=== PATIENT | male | born 1985 | race Two or more races ===

== ENCOUNTER 2016-07-25 23:25 | Emergency (ER) | payer BC ==
[2016-07-25] MEDS ORDERED: FAMOTIDINE INJ/PF 20 MG/2 ML SDV IV ONE (23:53)
[2016-07-25] MEDS ORDERED: DIPHENHYDRAMINE HCL 50 MG/ML VIAL IV ONE (23:53)
[2016-07-25] MEDS ORDERED: EPINEPHRINE INJ/PF 1 MG/1 ML AMPULE IM ONE (23:53)
[2016-07-25] MEDS ORDERED: METHYLPREDNISOLONE INJ 125 MG/2 ML SDV IV ONE (23:53)
[2016-07-25] MEDS ORDERED: RACEPINEPHRINE HCL 2.25% NEB 0.5 ML AMPUL NEB ONE (23:54)
[2016-07-25] MEDS ORDERED: EPINEPHRINE INJ/PF 1 MG/1 ML AMPULE ONE (23:56)
--- NOTE | 2016-07-25 23:57 | ER Document Report ---
ED General - General Chief Complaint: Allergic Reaction Stated Complaint: THROAT SWELLING Time Seen by Provider: 07/25/16 23:49 Notes: Patient is a 30-year-old male who presents with complaint of allergic reaction. Patient says it started about 20 minutes after he ate some food and had some sneezing and she is on it. He says in the past whenever he is eating dairy products he has noticeable to scratching or itching in his throat but says it is never that severe. He said this time after he ate a cheese his throat started to feel scratchy and then it continued to progress and now he has difficulty breathing and swallowing. He said he took a liquid allergy medicine. He is unsure what it was. He denies any rashes. He read all treatment at home if he does have history of asthma. Said this did not help. He has no other complaints at this time. TRAVEL OUTSIDE OF THE [place] IN LAST 30 DAYS: No - Related Data Allergies/Adverse Reactions: Penicillins Allergy (Verified 05/29/15 16:57) Past Medical History - Social History Smoking Status: Unknown if Ever Smoked Frequency of alcohol use: None Drug Abuse: None Family History: Reviewed & Not Pertinent Pulmonary Medical History: Reports: Hx Asthma Renal/ Medical History: Reports: Hx Kidney Stones. Denies: Hx Peritoneal Dialysis Psychiatric Medical History: Reports: Hx Bipolar Disorder, Hx Depression Past Surgical History: Reports: Hx Kidney (Renal Surgery) - x3, Hx Orthopedic Surgery - left knee meniscus, Hx Tonsillectomy - adenoids also removed - Immunizations Hx Diphtheria, Pertussis, Tetanus Vaccination: Yes Review of Systems - Review of Systems Notes: My Normal Review Basic REVIEW OF SYSTEMS: CONSTITUTIONAL : Denies fever, chills, or sweats. Denies recent illness. EENT: Sensation of swelling in throat. CARDIOVASCULAR: Denies chest pain. RESPIRATORY: Denies cough, cold, or chest congestion. some shortness of breath GASTROINTESTINAL: Denies abdominal pain. Denies nausea, vomiting, or diarrhea. Denies constipation. Last BM: SKIN: Denies rash or skin lesions. NEUROLOGICAL: Denies altered mental status or loss of consciousness. Denies headache. Denies weakness or paralysis or loss of use of either side. Denies problems with gait or speech. Denies sensory or motor loss. ALL OTHER SYSTEMS REVIEWED AND NEGATIVE. Physical Exam - Vital signs Vitals: Temp Pulse Resp BP Pulse Ox 97.8 F 101 H 19 163/97 H 98 07/25/16 23:29 07/25/16 23:29 07/25/16 23:29 07/25/16 23:29 07/25/16 23:29 - Notes Notes: General Appearance: Well nourished, alert, cooperative, no acute distress, no obvious discomfort. No stridor. Mild hoarseness of voice. Vitals: reviewed, See vital signs table. Head: no swelling or tenderness to the head Eyes: PERRL, EOMI, Conjuctiva clear Mouth: No decreasd moisture. No glossal or pharyngeal swelling on visual exam. Throat: No tonsillar inflammation, No airway obstruction, No lymphadenopathy Neck: Supple, no neck tenderness Lungs: No wheezing, No rales, No rhonci, No accessory muscle use, good air exchange bilaterally. Heart: Normal rate, Regular rythm, No murmur, no rub Extremities: strength 5/5 in all extremities, good pulses in all extremities, no swelling or tenderness in the extremities, no edema. Skin: warm, dry, appropriate color, no rash Neuro: speech clear, oriented x 3, normal affect, responds appropriately to questions. Course - Re-evaluation Re-evalutation: 07/26/16 01:10 Feeling improved. We will continue to closely monitor the patient. He has no pharyngeal or glossal swelling. The hoarseness of his voice has improved. - Vital Signs Vital signs: Temp Pulse Resp BP Pulse Ox 97.8 F 101 H 16 129/81 H 96 07/25/16 23:29 07/25/16 23:29 07/26/16 04:01 07/26/16 04:01 07/26/16 04:01 - Transfer of Care Notes: 07/26/16 04:10 Has not been watched for 4 hours. His symptoms have remained resolved. He has not required any repeat epinephrine. He is encouraged to stay away from cheese. He is encouraged to return to ER if has difficulty breathing, difficulty swallowing, or throat swelling. He will be discharged home with tapering steroids as well as adrenal KwikPen. Patient agrees with plan will be discharged home. Dictation of this chart was performed using voice recognition software; therefore, there may be some unintended grammatical errors. Discharge - Discharge Clinical Impression: Allergic reaction Qualifiers: Encounter type: initial encounter Qualified Code(s): T78.40XA - Allergy, unspecified, initial encounter Condition: Good Disposition: HOME, SELF-CARE Additional Instructions: Please take benadryl for itching. Please use the Adrenaclick pen and return to the ER immediately if you develop any throat tightness, difficulty breathing, or difficulty swallowing. Please stop eating cheese or any dairy related products. Prescriptions: Epinephrine [Adrenaclick] 0.3 mg IM ONCE PRN #1 kit PRN Reason: severe allergic reaction Prednisone 10 mg PO ASDIR #42 tablet
[2016-07-26 04:42] VITALS: BP 125/71
== END 2016-07-26 04:17 | disposition home or self-care (01) ==
LOC: ER 23:25
DX: T78.40XA Allergy, unspecified, initial encounter (principal); R06.00 Dyspnea, unspecified; R13.10 Dysphagia, unspecified; R49.0 Dysphonia; R09.89 Other specified symptoms and signs involving the circulatory and respiratory systems; X58.XXXA Exposure to other specified factors, initial encounter; J45.909 Unspecified asthma, uncomplicated
CPT/HCPCS: 94640; 99281; 96372; 96374; 96375; J1200; J0171; J2930; S0028; J3490

== ENCOUNTER 2017-01-04 13:08 | Emergency (ER) | payer BC ==
[2017-01-04] MEDS ORDERED: METHYLPREDNISOLONE INJ 125 MG/2 ML SDV IV ONE (13:31)
[2017-01-04] MEDS ORDERED: ALBUTEROL SULFATE 0.083% NEB 2.5 MG/3 ML AMPUL NEB ONE ×2 (13:31→16:18)
--- NOTE | 2017-01-04 13:33 | ER Document Report ---
ED Medical Screen (RME) - General Chief Complaint: Cough Stated Complaint: COUGH,CONGESTION,SHORTNESS OF BREATH Time Seen by Provider: 01/04/17 13:31 Notes: Patient has a history of asthma. He states he has been using his inhalers at home with no relief. He states he does not currently have any steroids. He states in the last hour he started to have sweating with chest pressure and increasing shortness of breath. TRAVEL OUTSIDE OF THE [place] IN LAST 30 DAYS: No - Related Data Allergies/Adverse Reactions: Penicillins Allergy (Verified 01/04/17 13:14) Past Medical History Pulmonary Medical History: Reports: Hx Asthma Renal/ Medical History: Reports: Hx Kidney Stones. Denies: Hx Peritoneal Dialysis Psychiatric Medical History: Reports: Hx Bipolar Disorder, Hx Depression Past Surgical History: Reports: Hx Kidney (Renal Surgery) - x3, Hx Orthopedic Surgery - left knee meniscus, Hx Tonsillectomy - adenoids also removed - Immunizations Hx Diphtheria, Pertussis, Tetanus Vaccination: Yes Physical Exam - Vital signs Vitals: Temp Pulse Resp BP Pulse Ox 98.9 F 105 H 24 H 146/89 H 97 01/04/17 13:12 01/04/17 13:12 01/04/17 13:12 01/04/17 13:12 01/04/17 13:12 Course - Vital Signs Vital signs: Temp Pulse Resp BP Pulse Ox 98.9 F 105 H 24 H 146/89 H 97 01/04/17 13:12 01/04/17 13:12 01/04/17 13:12 01/04/17 13:12 01/04/17 13:12
[2017-01-04] MEDS ORDERED: NORMAL SALINE 1000 ML 1,000 ML IV ONE (13:37)
--- NOTE | 2017-01-04 14:21 | RADIOLOGY REPORT (SQ) ---
EXAM DESCRIPTION: CHEST PA/LAT COMPLETED DATE/TIME: 01/04/2017 2:07 pm REASON FOR STUDY: cough/sob COMPARISON: 10/01/2012, 11/18/2014 EXAM PARAMETERS: NUMBER OF VIEWS: two views TECHNIQUE: Digital Frontal and Lateral radiographic views of the chest acquired. RADIATION DOSE: NA LIMITATIONS: none FINDINGS: LUNGS AND PLEURA: Minimal scarring or atelectasis in the right upper lobe superimposed on the anterior 3rd rib. No fluffy alveolar infiltrates worrisome for edema or pneumonia. No pleural effusion. No pneumothor ax. MEDIASTINUM AND HILAR STRUCTURES: No masses or contour abnormalities. HEART AND VASCULAR STRUCTURES: Heart normal size. No evidence for failure. BONES: No acute findings. HARDWARE: None in the chest. OTHER: No other significant finding. IMPRESSION: No acute findings TECHNICAL DOCUMENTATION: JOB ID: [id number] [employer]- All Rights Reserved
[2017-01-04 14:22] LABS: APPEARANCE,URINE CLEAR; BILIRUBIN,URINE NEGATIVE (NEGATIVE); GLUCOSE, URINE NEGATIVE (NEGATIVE); KETONES,URINE NEGATIVE (NEGATIVE); LEUKOCYTE ESTERASE,URINE NEGATIVE (NEGATIVE); NITRITE,URINE NEGATIVE (NEGATIVE); PROTEIN,URINE NEGATIVE (NEGATIVE); URINE SPECIFIC GRAVITY 1.015; UROBILINOGEN,URINE NEGATIVE mg/dL (<2.0)
[2017-01-04] MEDS ORDERED: IPRATROPIUM/ALBUTEROL 0.5-2.5 MG/3 ML AMPUL NEB ONE ×2 (14:22→14:55)
--- NOTE | 2017-01-04 14:23 | ER Document Report ---
ED Respiratory Problem <YUNG AGUILAR - Last Filed: 01/04/17 16:53> - General Mode of Arrival: Ambulatory Information source: Patient TRAVEL OUTSIDE OF THE [place] IN LAST 30 DAYS: No - HPI Patient complains to provider of: Short of breath Onset: Last week Duration: Continuous Context: Hx asthma Cough: Productive Sputum amount: Moderate Sputum color: Brown At home treatment: Bronchodilators - albuterol. denies: Inhaled steroids Associated symptoms: Other - see notes above <VON LR - Last Filed: 01/04/17 17:30> - General Chief Complaint: Cough Stated Complaint: COUGH,CONGESTION,SHORTNESS OF BREATH Time Seen by Provider: 01/04/17 13:31 Notes: 31 year old male with history of asthma presents to the ED complaining of increasing shortness of breath that started last week but was exacerbated today. Patient reports taking Albuterol at home with no relief. Patient has been on inhaled steroids in the past and states that they have helped manage his asthma, but is currently not on any. Patient additionally complains of a productive cough with brown sputum every few minutes. Patient denies fever. (VON LR) - Related Data Allergies/Adverse Reactions: Penicillins Allergy (Verified 01/04/17 13:14) Past Medical History - General Information source: Patient - Social History Smoking Status: Never Smoker Chew tobacco use (# tins/day): No Frequency of alcohol use: None Drug Abuse: None Family History: Reviewed & Not Pertinent Patient has suicidal ideation: No Patient has homicidal ideation: No Pulmonary Medical History: Reports: Hx Asthma Renal/ Medical History: Reports: Hx Kidney Stones. Denies: Hx Peritoneal Dialysis Psychiatric Medical History: Reports: Hx Bipolar Disorder, Hx Depression Past Surgical History: Reports: Hx Kidney (Renal Surgery) - x3, Hx Orthopedic Surgery - left knee meniscus, Hx Tonsillectomy - adenoids also removed - Immunizations Hx Diphtheria, Pertussis, Tetanus Vaccination: Yes <VON LR - Last Filed: 01/04/17 17:30> Review of Systems - Review of Systems Constitutional: No symptoms reported EENT: No symptoms reported Cardiovascular: No symptoms reported Respiratory: See HPI, Cough, Short of breath, Sputum - brown Gastrointestinal: No symptoms reported Genitourinary: No symptoms reported Male Genitourinary: No symptoms reported Musculoskeletal: No symptoms reported Skin: No symptoms reported Hematologic/Lymphatic: No symptoms reported Neurological/Psychological: No symptoms reported -: Yes All other systems reviewed and negative <VON LR - Last Filed: 01/04/17 17:30> Physical Exam - General General appearance: Alert In distress: None - HEENT Head: Normocephalic, Atraumatic Eyes: Normal Extraocular movements intact: Yes Pupils: PERRL Mouth/Lips: Normal Mucous membranes: Normal Pharynx: Normal - Respiratory Respiratory status: Retractions Chest status: Nontender Breath sounds: Rhonchi - diffuse inspiratory and expiratory, Wheezing - diffuse inspiratory and expiratory Chest palpation: Normal - Cardiovascular Rhythm: Regular, Tachycardia Heart sounds: Normal auscultation - Abdominal Inspection: Normal - Back Back: Normal - Extremities General upper extremity: Normal inspection, Normal ROM General lower extremity: Normal inspection, Normal ROM - Neurological Neuro grossly intact: Yes - Psychological Associated symptoms: Normal affect, Normal mood - Skin Skin Temperature: Warm Skin Moisture: Dry Skin Color: Normal <VON LR - Last Filed: 01/04/17 17:30> - Vital signs Vitals: Temp Pulse Resp BP Pulse Ox 98.9 F 105 H 24 H 146/89 H 97 01/04/17 13:12 01/04/17 13:12 01/04/17 13:12 01/04/17 13:12 01/04/17 13:12 Course - Laboratory Result Diagrams: 01/04/17 14:26 01/04/17 14:26 - Diagnostic Test Radiology reviewed: Image reviewed, Reports reviewed - Chest x-ray does not show any acute process - EKG Interpretation by Ok EKG shows normal: Sinus rhythm, Shafer, Intervals, QRS Complexes, ST-T Waves Rate: Normal - 97 Rhythm: NSR <YUNG AGUILRA - Last Filed: 01/04/17 16:53> - Laboratory Result Diagrams: 01/04/17 14:26 01/04/17 14:26 <VON LR - Last Filed: 01/04/17 17:30> - Re-evaluation Re-evalutation: 01/04/17 16:52 Lungs are clear at this time and the patient is not tachycardic. He will be given additional albuterol treatment, a full day's dose of prednisone, discharged with prescription for prednisone taper dose start tomorrow and another albuterol inhaler so he does not run out. (YUNG AGUILAR) - Vital Signs Vital signs: Temp Pulse Resp BP Pulse Ox 97.5 F 105 H 17 121/75 95 01/04/17 17:01 01/04/17 13:12 01/04/17 17:01 01/04/17 17:01 01/04/17 17:01 - Laboratory Laboratory results interpreted by me: 01/04/17 01/04/17 14:26 14:26 RBC 5.84 H MCH 26.5 L RDW 15.4 H Plt Count 145 L Monocytes % 13.1 H Eosinophils % 16.6 H Absolute Eosinophils 1.4 H Glucose 57 L Creatine Kinase 272 H Discharge <YUNG AGUILAR - Last Filed: 01/04/17 16:53> <VON LR - Last Filed: 01/04/17 17:30> - Discharge Clinical Impression: Acute exacerbation of extrinsic asthma, Viral upper respiratory tract infection with cough Additional Instructions: Upper Respiratory Illness You have a viral infection of the respiratory passages -- a "cold." This common infection causes nasal congestion, drainage, and often sore throat and cough. It is caused by a virus and is highly contagious. The disease usually lasts a week or more, though the worst symptoms are usually over in 3 or 4 days. There is no "cure" for the viral infection -- it must run its course. If there is a complication, such as bacterial infection in the nose, sinuses, middle ear, or bronchial tubes, antibiotics may be required, but antibiotics won 't affect the virus. If you smoke, you should STOP!! Drink plenty of fluids. A humidifier may help. An expectorant medication or decongestant may make you more comfortable. Use acetaminophen or ibuprofen for fever or aches. See the doctor if fever persists over two or three days, if there is any significant worsening of your symptoms, or if you simply fail to improve as expected. Bronchitis with Bronchospasm (Wheezing) You have bronchitis with bronchospasm (wheezing). Sometimes people develop wheezing with a chest cold. This occurs either because of an underlying tendency toward asthma or because the virus itself irritates the bronchial tubes. This irritation causes cough, shortness of breath, and wheezing. Emergency treatment of bronchospasm may include adrenaline shots or bronchodilator aerosol. You may feel lightheaded and have a rapid pulse for an hour or two. Rest and get plenty of fluids. At home, we'll treat you with a bronchodilator inhaler. Corticosteroids may be required for some patients. Until you recover, avoid chemical fumes, dusts, pollens, and exercising in very cold or dry air. If you smoke, stop now! Most cases of bronchitis get better without antibiotics. We prescribe antibiotics when we believe bacteria are damaging your airways, or if there's high risk the bronchitis will worsen into pneumonia. Increase your fluid intake. A cool mist humidifier may make your lungs more comfortable. An expectorant (cough medicine that loosens phlegm) can help. Repeated episodes of bronchitis and bronchospasm may result in lung damage -- for example, chronic bronchitis, recurrent pneumonias, or emphysema. If you develop a fever, increased wheezing, chest pain, or severe shortness of breath, you should contact the doctor immediately. //////////////////////////////////////////////////////////////////////////////// ////////////////////////////////////////////////////////// Start the prednisone as prescribed tomorrow. Drink plenty of fluids. Plenty of rest. Use your albuterol inhaler every 2-4 hours for wheezing as needed. Try Robitussin-DM for cough control. Follow-up with your primary care this week for recheck if not improving. Ask your doctor about a long acting bronchodilator and steroid inhaler such as Advair to manage her asthma symptoms. RETURN TO THE EMERGENCY ROOM IF ANY NEW OR WORSENING SYMPTOMS. Prescriptions: Albuterol Sulfate [Proair HFA] 1 - 2 puff IH Q4 PRN #1 inhaler PRN Reason: Prednisone [Deltasone 10 mg Tablet] 10 mg PO ASDIR PRN #21 tablet PRN Reason: Forms: Return to Work Scribe Attestation: 01/04/17 16:49 I personally performed the services described in the documentation, reviewed and edited the documentation which was dictated to the scribe in my presence, and it accurately records my words and actions. (YUNG AGUILAR) Scribe Documentation - Scribe Written by Scribe:: Otis Viramontes, 01/04/2017 1431 acting as scribe for :: Yuly <VON LR - Last Filed: 01/04/17 17:30>
[2017-01-04 14:47] LABS: ABSOLUTE BASOPHILS # (AUTO) 0.1 10^3/uL (0.0-0.2); ABSOLUTE EOSINOPHILS # (AUTO) 1.4 10^3/uL (0.0-0.6); ABSOLUTE LYMPHOCYTES (AUTO) 1.7 10^3/uL (0.5-4.7); ABSOLUTE MONOCYTES (AUTO) 1.1 10^3/uL (0.1-1.4); ABSOLUTE NEUT (AUTO) 4.2 10^3/uL (1.7-8.2); BASOPHILS % (AUTO) 1.4 % (0-2); EOSINOPHILS % (AUTO) 16.6 % (0-6); HEMOGLOBIN 15.5 g/dL (13.5-17.0); HGB HCT DIFFERENCE -0.5; LYMPHOCYTES % (AUTO) 19.7 % (13-45); MEAN CORPUSCULAR HEMOGLOBIN 26.5 pg (27.0-33.4); MEAN CORPUSCULAR HGB CONC 32.9 g/dL (32.0-36.0); MEAN CORPUSCULAR VOLUME 81 fl (80-97); MONOCYTES % (AUTO) 13.1 % (3-13); RED BLOOD COUNT 5.84 10^6/uL (4.35-5.55); RED CELL DISTRIBUTION WIDTH 15.4 % (11.5-14.0); SEGMENTED NEUTROPHILS % (AUTO) 49.2 % (42-78); VENOUS BLOOD BASE EXCESS -1.1 mmol/L; VENOUS BLOOD HCO3 23.3 mmol/L (20-32); VENOUS BLOOD PH 7.41 (7.30-7.42); WHITE BLOOD COUNT 8.6 10^3/uL (4.0-10.5)
[2017-01-04] MEDS ORDERED: MAGNESIUM SULFATE/D5W 1 GM/100 ML RTUPB IV ONE (14:55)
[2017-01-04 15:05] LABS: ALANINE AMINOTRANSFERASE 48 U/L (21-72); ALBUMIN 4.1 g/dL (3.5-5.0); ALKALINE PHOSPHATASE 60 U/L (38-126); ANION GAP 12 (5-19); ASPARTATE AMINO TRANSFERASE 27 U/L (17-59); BILIRUBIN,DIRECT 0.3 mg/dL (0.0-0.4); BILIRUBIN,TOTAL 1.1 mg/dL (0.2-1.3); BLOOD UREA NITROGEN 10 mg/dL (7-20); CALCIUM 9.4 mg/dL (8.4-10.2); CARBON DIOXIDE 25 mmol/L (22-30); CHLORIDE 107 mmol/L (98-107); CREATINE KINASE 272 U/L (55-170); CREATININE RESULT 1.08 mg/dL (0.52-1.25); GLUCOSE 57 mg/dL (75-110); POTASSIUM 4.7 mmol/L (3.6-5.0); SODIUM 144.2 mmol/L (137-145); TOTAL PROTEIN 6.7 g/dL (6.3-8.2)
[2017-01-04] MEDS ORDERED: PREDNISONE 20 MG TABLET PO ONE (16:20)
--- NOTE | 2017-01-04 17:11 | EKG REPORT ---
SEVERITY:- BORDERLINE ECG - SINUS RHYTHM EARLY TRANSITION : Confirmed by: Rios Pascual MD 04-Jan-2017 17:10:29
[2017-01-04 17:28] VITALS: BP 121/75
== END 2017-01-04 17:30 | disposition home or self-care (01) ==
LOC: ER 13:08
DX: J45.901 Unspecified asthma with (acute) exacerbation (principal); J06.9 Acute upper respiratory infection, unspecified; B97.89 Other viral agents as the cause of diseases classified elsewhere; R05 Cough; R06.02 Shortness of breath; Z79.899 Other long term (current) drug therapy; Z88.0 Allergy status to penicillin
CPT/HCPCS: 93005; 94640 ×2; 99284; 96361; 96375; 96365; 36415; 87040; 87070; 87086; 87205; 82550; 85025; 87077; 80053; 81001; 84484; 87186; 82803; 83605; 71020; 93010; J2930; J3475; J7512; J7030; J7620

== ENCOUNTER 2017-02-08 13:34 | Emergency (ER) | payer BC ==
[2017-02-08] MEDS ORDERED: KETOROLAC TROMETHAMINE 60 MG/2 ML SDV IM ONE (14:56)
--- NOTE | 2017-02-08 14:56 | ER Document Report ---
ED Medical Screen (RME) - General Chief Complaint: Leg Pain Stated Complaint: LEFT THIGH PAIN Time Seen by Provider: 02/08/17 14:52 Mode of Arrival: Wheelchair Information source: Patient Notes: PT REPORTS BACK AND THIGH PAIN, SENT HOME FROM WORK FROM [employer]. DENIES TRAUMA, REPORT THIGH PAIN UP TO ABOVE THE BUTTOCKS, LEFT SIDE. TOOK OTC MEDS WITHOUT RELIEF. REPORTS URINARY FREQUENCY, LBM NORMAL, YESTERDAY. REPORTS RIGHT LEG KEEPS GOING NUMB. TRAVEL OUTSIDE OF THE [place] IN LAST 30 DAYS: No - Related Data Allergies/Adverse Reactions: Penicillins Allergy (Verified 02/08/17 13:37) Past Medical History Pulmonary Medical History: Reports: Hx Asthma Renal/ Medical History: Reports: Hx Kidney Stones. Denies: Hx Peritoneal Dialysis Psychiatric Medical History: Reports: Hx Bipolar Disorder, Hx Depression Past Surgical History: Reports: Hx Kidney (Renal Surgery) - x3, Hx Orthopedic Surgery - left knee meniscus, Hx Tonsillectomy - adenoids also removed - Immunizations Hx Diphtheria, Pertussis, Tetanus Vaccination: Yes Physical Exam - Vital signs Vitals: Temp Pulse Resp BP Pulse Ox 98.0 F 105 H 18 127/78 H 98 02/08/17 13:42 02/08/17 13:42 02/08/17 13:42 02/08/17 13:42 02/08/17 13:42 Course - Vital Signs Vital signs: Temp Pulse Resp BP Pulse Ox 98.0 F 105 H 18 127/78 H 98 02/08/17 13:42 02/08/17 13:42 02/08/17 13:42 02/08/17 13:42 02/08/17 13:42
[2017-02-08 15:54] LABS: APPEARANCE,URINE CLEAR; BILIRUBIN,URINE NEGATIVE (NEGATIVE); COLOR,URINE STRAW; GLUCOSE, URINE NEGATIVE (NEGATIVE); KETONES,URINE NEGATIVE (NEGATIVE); LEUKOCYTE ESTERASE,URINE NEGATIVE (NEGATIVE); NITRITE,URINE NEGATIVE (NEGATIVE); PROTEIN,URINE NEGATIVE (NEGATIVE); URINE SPECIFIC GRAVITY 1.009; UROBILINOGEN,URINE NEGATIVE mg/dL (<2.0)
--- NOTE | 2017-02-08 15:56 | ER Document Report ---
ED General - General Chief Complaint: Leg Pain Stated Complaint: LEFT THIGH PAIN Time Seen by Provider: 02/08/17 14:52 Mode of Arrival: Wheelchair TRAVEL OUTSIDE OF THE [place] IN LAST 30 DAYS: No - HPI Notes: 31-year-old male presents today with complaints of sudden onset lower back and left lower thigh pain approximately 1 day ago. pain 7/10, throbbing and achy. Denies any numbness or tingling down bilateral lower extremities. denies issues with bowel or bladder function since onset of pain. Tried motrin for pain without full relief. Worse when bending over, better when laying down. Pain is progressive. Denies any trauma. Denies any fevers or chills. Denies any cp, sob , n/v/d, abd pain, dysuria and hematuria. Denies history of back issues - Related Data Allergies/Adverse Reactions: Penicillins Allergy (Verified 02/08/17 13:37) Home Medications: Current Home Medications Albuterol Sulfate [Albuterol Sulfate 2.5mg/3 mL] 1 vial IH Q4 PRN 02/08/17 [ History] Albuterol Sulfate [Ventolin Hfa] 1 - 2 puff IH Q4 PRN 02/08/17 [History] Past Medical History - General Information source: Patient - Social History Smoking Status: Never Smoker Chew tobacco use (# tins/day): No Frequency of alcohol use: None Drug Abuse: None Family History: Reviewed & Not Pertinent Patient has suicidal ideation: No Patient has homicidal ideation: No Pulmonary Medical History: Reports: Hx Asthma Renal/ Medical History: Reports: Hx Kidney Stones. Denies: Hx Peritoneal Dialysis Psychiatric Medical History: Reports: Hx Bipolar Disorder, Hx Depression Past Surgical History: Reports: Hx Kidney (Renal Surgery) - x3, Hx Orthopedic Surgery - left knee meniscus, Hx Tonsillectomy - adenoids also removed - Immunizations Hx Diphtheria, Pertussis, Tetanus Vaccination: Yes Review of Systems - Review of Systems Constitutional: No symptoms reported Cardiovascular: No symptoms reported Respiratory: No symptoms reported Gastrointestinal: No symptoms reported Genitourinary: No symptoms reported Male Genitourinary: No symptoms reported Musculoskeletal: See HPI -: Yes All other systems reviewed and negative Physical Exam - Vital signs Vitals: Temp Pulse Resp BP Pulse Ox 98.0 F 105 H 18 127/78 H 98 02/08/17 13:42 02/08/17 13:42 02/08/17 13:42 02/08/17 13:42 02/08/17 13:42 Interpretation: Normal, Tachycardic - pt in pain - General General appearance: Appears well In distress: None - Respiratory Respiratory status: No respiratory distress Chest status: Nontender Breath sounds: Normal - Cardiovascular Rhythm: Regular Heart sounds: Normal auscultation Murmur: Yes - Back Back: Tender Notes: EXAM: straight leg test negative. Pain with flexion and extension at 30 degrees. Normal hip rotation. DTR +2 in BLE equally. Normal motor and sensory function in BLE equally. Distal pulses + 2 BLE equally. Noted paraspinal tenderness near and L3. Noted spinal tenderness near L4. No CVA tenderness. - Extremities Hip: Normal, Nontender Thigh: Normal, Nontender Knee: Normal Calf: Normal - Neurological Neuro grossly intact: Yes Cognition: Normal Orientation: AAOx4 Knee - Reflex grade: 2 = Normal Ankle - Reflex grade: 2 = Normal - Skin Skin Temperature: Warm Skin Moisture: Dry Skin Color: Normal Skin Turgor: Elastic Course - Re-evaluation Re-evalutation: Rechecked the patient who is resting comfortably. On re-exam, patient is symptomatically improved. Discussed the results of the radiology as well as the diagnosis at great length. Discussed the need to return to the ER for any new or worsening sx. Patient understands to take the Rx as directed. All questions answered. Patient comfortable with the decision to go home. Patient does have a ride home 02/08/17 17:11 02/08/17 17:13 - Vital Signs Vital signs: Temp Pulse Resp BP Pulse Ox 98.0 F 105 H 18 127/78 H 98 02/08/17 13:42 02/08/17 13:42 02/08/17 13:42 02/08/17 13:42 02/08/17 13:42 - Diagnostic Test Radiology results interpreted by me: 02/08/17 17:14 xray lumbar spine nad per rad Discharge - Discharge Clinical Impression: LOWER BACK SPRAIN Condition: Good Disposition: HOME, SELF-CARE Instructions: Low Back Pain ([facility]) Additional Instructions: Take Flexeril as directed, do not drive, drink or operate heavy machinery while taking medications. Rice therapy. Take meloxicam as directed, do not take any NSAIDs while taking it. Back stretches. Follow-up with parking enforcement specialist and primary care doctor within 2-3 days. Work note given.D/C: advised to return to the ER if any signs or symptoms became worse. All questions and concerns answered by this provider . Patient/family states would follow plan of care and agreed to plan of care. Patient was discharged home and off unit without incident. Please excuse any errors in this document was done by dragon dictation. Prescriptions: Cyclobenzaprine HCl [Flexeril 10 mg Tablet] 10 mg PO TID #15 tablet Meloxicam 7.5 mg PO DAILY #7 tablet Forms: Return to Work Referrals: NANCY AHUMADA MD [ACTIVE STAFF] - Follow up as needed
[2017-02-08] MEDS ORDERED: MORPHINE SULFATE 10 MG/ML INJ IM ONE (16:13)
[2017-02-08] MEDS ORDERED: CYCLOBENZAPRINE HCL 10 MG TABLET PO ONE (16:13)
--- NOTE | 2017-02-08 16:44 | RADIOLOGY REPORT (SQ) ---
EXAM DESCRIPTION: L SPINE WHOLE COMPLETED DATE/TIME: 02/08/2017 4:35 pm REASON FOR STUDY: Sudden onset left lumbar pain COMPARISON: None. NUMBER OF VIEWS: Five views including obliques. TECHNIQUE: AP, lateral, oblique, and sacral radiographic images acquired of the lumbar spine. LIMITATIONS: None. FINDINGS: MINERALIZATION: Normal. SEGMENTATION: Normal. No transitional anatomy. ALIGNMENT: Normal. VERTEBRAE: Maintained height. No fracture or worrisome bone lesion. DISCS: Preserved height. No significant osteophytes or end plate irregularity. POSTERIOR ELEMENTS: Pedicles and facets are intact. No pars defect or posterior arch defects. HARDWARE: None in the spine. PARASPINAL SOFT TISSUES: Normal. PELVIS: Intact as visualized. No fractures or worrisome bone lesions. SI joints intact. OTHER: No other significant finding. IMPRESSION: NORMAL 5 VIEW LUMBAR SPINE. TECHNICAL DOCUMENTATION: JOB ID: [id number] [employer]- All Rights Reserved
[2017-02-08 17:54] VITALS: BP 118/57
[2017-02-08] MEDS ORDERED: NORMAL SALINE 1000 ML 1,000 ML IV PRN (18:20)
[2017-02-08 19:07] LABS: ABSOLUTE BASOPHILS # (AUTO) 0.1 10^3/uL (0.0-0.2); ABSOLUTE EOSINOPHILS # (AUTO) 0.3 10^3/uL (0.0-0.6); ABSOLUTE LYMPHOCYTES (AUTO) 1.6 10^3/uL (0.5-4.7); ABSOLUTE NEUT (AUTO) 9.7 10^3/uL (1.7-8.2); BASOPHILS % (AUTO) 0.5 % (0-2); EOSINOPHILS % (AUTO) 2.3 % (0-6); HEMATOCRIT 41.6 % (37.9-51.0); HEMOGLOBIN 13.2 g/dL (13.5-17.0); LYMPHOCYTES % (AUTO) 12.5 % (13-45); MEAN CORPUSCULAR HEMOGLOBIN 25.1 pg (27.0-33.4); MEAN CORPUSCULAR HGB CONC 31.8 g/dL (32.0-36.0); MEAN CORPUSCULAR VOLUME 79 fl (80-97); PLATELET COUNT 176 10^3/uL (150-450); RED BLOOD COUNT 5.28 10^6/uL (4.35-5.55); RED CELL DISTRIBUTION WIDTH 15.3 % (11.5-14.0); SEGMENTED NEUTROPHILS % (AUTO) 76.7 % (42-78); TOTAL CELLS COUNTED % (AUTO) 100 %; WHITE BLOOD COUNT 12.6 10^3/uL (4.0-10.5)
[2017-02-08 19:23] LABS: ALANINE AMINOTRANSFERASE 43 U/L (21-72); ALBUMIN 4.2 g/dL (3.5-5.0); ALKALINE PHOSPHATASE 79 U/L (38-126); ANION GAP 10 (5-19); ASPARTATE AMINO TRANSFERASE 25 U/L (17-59); BILIRUBIN,DIRECT 0.2 mg/dL (0.0-0.4); BILIRUBIN,TOTAL 1.1 mg/dL (0.2-1.3); BLOOD UREA NITROGEN 9 mg/dL (7-20); CALCIUM 9.8 mg/dL (8.4-10.2); CARBON DIOXIDE 27 mmol/L (22-30); CHLORIDE 102 mmol/L (98-107); GLUCOSE 85 mg/dL (75-110); POTASSIUM 3.9 mmol/L (3.6-5.0); SODIUM 139.4 mmol/L (137-145); TOTAL PROTEIN 6.8 g/dL (6.3-8.2)
--- NOTE | 2017-02-09 10:31 | EKG REPORT ---
SEVERITY:- ABNORMAL ECG - SINUS TACHYCARDIA INCOMPLETE RIGHT BUNDLE BRANCH BLOCK : Confirmed by: Keshia Soto 09-Feb-2017 10:29:20
== END 2017-02-08 21:25 | disposition home or self-care (01) ==
LOC: ER 13:34
DX: S33.5XXA Sprain of ligaments of lumbar spine, initial encounter (principal); M79.605 Pain in left leg; X58.XXXA Exposure to other specified factors, initial encounter; Z87.442 Personal history of urinary calculi; Z88.0 Allergy status to penicillin
CPT/HCPCS: 93005; 99284; 96372; 96360; 36415; 85025; 80053; 81001; 85379; 72110; 93010; J1885; J2270; J7030

== ENCOUNTER 2018-08-17 01:52 | Emergency (ER) | payer BC ==
[2018-08-17] MEDS ORDERED: NORMAL SALINE 1000 ML 1,000 ML IV ONE (02:22)
[2018-08-17] MEDS ORDERED: METHYLPREDNISOLONE INJ 125 MG/2 ML SDV IV ONE (02:22)
[2018-08-17] MEDS ORDERED: FAMOTIDINE INJ/PF 20 MG/2 ML SDV IV ONE ×2 (02:22→02:28)
[2018-08-17] MEDS ORDERED: EPINEPHRINE INJ/PF 1 MG/1 ML AMPULE IM ONE (02:23)
[2018-08-17] MEDS ORDERED: DIPHENHYDRAMINE HCL 50 MG/ML VIAL IV ONE (02:24)
--- NOTE | 2018-08-17 02:26 | ER Document Report ---
ED Allergic Reaction - General Chief Complaint: Allergic Reaction Stated Complaint: POSSIBLE ALLERGIC REACTION Time Seen by Provider: 08/17/18 02:13 Primary Care Provider: ESTEVAN MARRUFO MD [ACTIVE STAFF] - Follow up as needed Mode of Arrival: Ambulatory Information source: Patient TRAVEL OUTSIDE OF THE [place] IN LAST 30 DAYS: No - HPI Onset: Just prior to arrival Onset/Duration: Sudden Quality of pain: No pain Food exposure: [place] Swelling: Lip(s), Throat Trouble swallowing / speaking: Moderate Associated symptoms: None Similar symptoms previously: Yes Recently seen / treated by doctor: No - Related Data Allergies/Adverse Reactions: kiwi Allergy (Verified 08/17/18 01:58) Penicillins Allergy (Verified 02/08/17 13:37) Past Medical History - Social History Smoking Status: Never Smoker Chew tobacco use (# tins/day): No Frequency of alcohol use: None Drug Abuse: None Family History: Reviewed & Not Pertinent Patient has suicidal ideation: No Patient has homicidal ideation: No Pulmonary Medical History: Reports: Hx Asthma Renal/ Medical History: Reports: Hx Kidney Stones. Denies: Hx Peritoneal Kaylee lysis Psychiatric Medical History: Reports: Hx Bipolar Disorder, Hx Depression Past Surgical History: Reports: Hx Kidney (Renal Surgery) - x3, Hx Orthopedic Surgery - left knee meniscus, Hx Tonsillectomy - adenoids also removed - Immunizations Hx Diphtheria, Pertussis, Tetanus Vaccination: Yes Review of Systems - Review of Systems Constitutional: No symptoms reported EENT: Throat swelling, Other - Lip Sweelling Cardiovascular: No symptoms reported Respiratory: No symptoms reported Gastrointestinal: No symptoms reported Genitourinary: No symptoms reported Male Genitourinary: No symptoms reported Musculoskeletal: No symptoms reported Skin: No symptoms reported Hematologic/Lymphatic: No symptoms reported Neurological/Psychological: No symptoms reported -: Yes All other systems reviewed and negative Physical Exam - Vital signs Vitals: Temp Pulse Resp BP Pulse Ox 98.0 F 85 20 147/96 H 97 08/17/18 01:56 08/17/18 01:56 08/17/18 01:56 08/17/18 01:56 08/17/18 01:56 Interpretation: Normal - General General appearance: Appears well, Alert, Other - Obesity In distress: None - HEENT Head: Normocephalic, Atraumatic Eyes: Normal Pupils: PERRL Sinus: Normal Nasal: Normal Mouth/Lips: Other - Mild lower lip swelling Mucous membranes: Normal, Moist Pharynx: Normal Neck: Normal - Respiratory Respiratory status: No respiratory distress Chest status: Nontender Breath sounds: Normal Chest palpation: Normal - Cardiovascular Rhythm: Regular Heart sounds: Normal auscultation Murmur: No - Abdominal Inspection: Normal Distension: No distension Bowel sounds: Normal Tenderness: Nontender Organomegaly: No organomegaly - Back Back: Normal, Nontender - Extremities General upper extremity: Normal inspection, Nontender, Normal color, Normal ROM, Normal temperature General lower extremity: Normal inspection, Nontender, Normal color, Normal ROM, Normal temperature, Normal weight bearing. No: Evelia's sign - Neurological Neuro grossly intact: Yes Cognition: Normal Orientation: AAOx4 Harry Coma Scale Eye Opening: Spontaneous [place] Coma Scale Verbal: Oriented [place] Coma Scale Motor: Obeys Commands [place] Coma Scale Total: 15 Speech: Normal Motor strength normal: LUE, RUE, LLE, RLE Sensory: Normal - Psychological Associated symptoms: Normal affect, Normal mood - Skin Skin Temperature: Warm Skin Moisture: Dry Skin Color: Normal Course - Re-evaluation Re-evalutation: 08/17/18 04:27 On re-evaluation, patient said she is feeling a lot better. His difficulty swallowing has resolved. He denies any shortness of breath or chest pain. He wants to be discharged home to follow-up with his primary doctor in the morning. I advised him to come back to the emergency room or call 911 if his condition worsens. - Vital Signs Vital signs: Temp Pulse Resp BP Pulse Ox 97.9 F 85 17 130/70 H 95 08/17/18 04:51 08/17/18 01:56 08/17/18 04:51 08/17/18 04:51 08/17/18 04:51 - Laboratory Result Diagrams: 08/17/18 02:50 08/17/18 02:50 Laboratory results interpreted by me: 08/17/18 02:50 Hgb 12.7 L MCV 79 L MCH 25.4 L RDW 15.7 H Plt Count 103 L Eosinophils % 10.6 H Discharge - Discharge Clinical Impression: Allergic reaction Qualifiers: Encounter type: initial encounter Qualified Code(s): T78.40XA - Allergy, unspecified, initial encounter Condition: Stable Disposition: HOME, SELF-CARE Instructions: Acute Allergic Reaction ([facility]) Additional Instructions: Please follow-up with your primary doctor within the next 24 hours. Return to the emergency room or call 911 if your condition worsens. Prescriptions: Diphenhydramine HCl [Benadryl 50 mg Capsule] 1 cap PO Q6 PRN #20 capsule PRN Reason: allergic reaction Epinephrine 0.3 mg IJ ONCE PRN #1 auto.injct PRN Reason: allergic reaction Famotidine [Pepcid 40 mg Tablet] 40 mg PO DAILY #10 tablet Prednisone [Deltasone 20 mg Tablet] 4 tab PO DAILY 4 Days tablet Forms: Return to Work Referrals: ESTEVAN MARRUFO MD [ACTIVE STAFF] - Follow up as needed
[2018-08-17 03:07] LABS: ABSOLUTE BASOPHILS # (AUTO) 0.1 10^3/uL (0.0-0.2); ABSOLUTE EOSINOPHILS # (AUTO) 0.6 10^3/uL (0.0-0.6); ABSOLUTE LYMPHOCYTES (AUTO) 1.9 10^3/uL (0.5-4.7); ABSOLUTE MONOCYTES (AUTO) 0.7 10^3/uL (0.1-1.4); ABSOLUTE NEUT (AUTO) 2.5 10^3/uL (1.7-8.2); EOSINOPHILS % (AUTO) 10.6 % (0-6); HEMATOCRIT 39.4 % (37.9-51.0); HEMOGLOBIN 12.7 g/dL (13.5-17.0); LYMPHOCYTES % (AUTO) 33.3 % (13-45); MEAN CORPUSCULAR HEMOGLOBIN 25.4 pg (27.0-33.4); MEAN CORPUSCULAR HGB CONC 32.4 g/dL (32.0-36.0); MEAN CORPUSCULAR VOLUME 79 fl (80-97); MONOCYTES % (AUTO) 12.3 % (3-13); PLATELET COUNT 103 10^3/uL (150-450); RED BLOOD COUNT 5.01 10^6/uL (4.35-5.55); RED CELL DISTRIBUTION WIDTH 15.7 % (11.5-14.0); SEGMENTED NEUTROPHILS % (AUTO) 42.8 % (42-78); TOTAL CELLS COUNTED % (AUTO) 100 %; WHITE BLOOD COUNT 5.7 10^3/uL (4.0-10.5)
[2018-08-17 03:23] LABS: ALANINE AMINOTRANSFERASE 36 U/L (21-72); ALKALINE PHOSPHATASE 45 U/L (38-126); ANION GAP 8 (5-19); ASPARTATE AMINO TRANSFERASE 28 U/L (17-59); BILIRUBIN,DIRECT 0.1 mg/dL (0.0-0.4); BILIRUBIN,TOTAL 0.6 mg/dL (0.2-1.3); BLOOD UREA NITROGEN 16 mg/dL (7-20); CALCIUM 9.3 mg/dL (8.4-10.2); CARBON DIOXIDE 25 mmol/L (22-30); CHLORIDE 105 mmol/L (98-107); GLUCOSE 110 mg/dL (75-110); POTASSIUM 4.1 mmol/L (3.6-5.0); SODIUM 138.4 mmol/L (137-145); TOTAL PROTEIN 6.5 g/dL (6.3-8.2)
[2018-08-17 04:54] VITALS: BP 130/70
== END 2018-08-17 04:58 | disposition home or self-care (01) ==
LOC: ER 01:52
DX: T78.40XA Allergy, unspecified, initial encounter (principal); R22.0 Localized swelling, mass and lump, head; R09.89 Other specified symptoms and signs involving the circulatory and respiratory systems; E66.9 Obesity, unspecified; J45.909 Unspecified asthma, uncomplicated; Z91.018 Allergy to other foods; Z88.0 Allergy status to penicillin
CPT/HCPCS: 99283; 96372; 96361; 96374; 96375; 36415; 85025; 80053; J1200; J0171; J2930; J7030; S0028

== ENCOUNTER 2018-09-16 15:33 | Emergency (ER) | payer BC ==
--- NOTE | 2018-09-16 16:17 | RADIOLOGY REPORT (SQ) ---
EXAM DESCRIPTION: CHEST 2 VIEWS COMPLETED DATE/TIME: 09/16/2018 4:05 pm REASON FOR STUDY: cough congestion chest pain with cough COMPARISON: 01/04/2017 EXAM PARAMETERS: NUMBER OF VIEWS: two views TECHNIQUE: Digital Frontal and Lateral radiographic views of the chest acquired. RADIATION DOSE: NA LIMITATIONS: none FINDINGS: LUNGS AND PLEURA: No opacities, masses or pneumothorax. No pleural effusion. MEDIASTINUM AND HILAR STRUCTURES: No masses or contour abnormalities. HEART AND VASCULAR STRUCTURES: Heart normal size. No evidence for failure. BONES: No acute findings. HARDWARE: None in the chest. OTHER: No other significant finding. IMPRESSION: NO ACUTE RADIOGRAPHIC FINDING IN THE CHEST. TECHNICAL DOCUMENTATION: JOB ID: [id number] [employer]- All Rights Reserved Reading location - IP/workstation name: [email or web address]
--- NOTE | 2018-09-16 16:19 | ER Document Report ---
ED Respiratory Problem - General Chief Complaint: Chest Congestion Stated Complaint: BODY ACHES, COUGH, CONGESTION Time Seen by Provider: 09/16/18 15:49 Mode of Arrival: Ambulatory Information source: Patient Notes: 33-year-old male presented to ED for cough cold congestion causing his chest to hurt from the cough. He states he only has chest pain when he coughs. He states he has not had any fevers that he knows of but he did have some hot feeling and some chills. He is alert oriented respirations regular and unlabored speaking in full sentences walks with even steady gait. He states he does have a history of a inguinal hernia that he was recently diagnosed with and this cough does make a pop out but it does pop right back in. He also has a history of kidney stone with surgery to remove some of the stones. 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 TRAVEL OUTSIDE OF THE [place] IN LAST 30 DAYS: No - HPI Patient complains to provider of: Chest pain - With cough only, Cough Onset: Other - 3 days Duration: Continuous Initiating Event: URI Quality of pain: Achy, Sharp - When he coughs Severity: Moderate Pain Level: 2 Cough: Nonproductive Sputum amount: None Associated symptoms: Chest pain/discomfort, Chills, Congestion, Cough, PND, Runny nose, Sinus pain/pressure, Short of breath Similar symptoms previously: Yes Recently seen / treated by doctor: Yes - Recently diagnosed with inguinal hernia - Related Data Allergies/Adverse Reactions: kiwi Allergy (Verified 09/16/18 15:36) Penicillins Allergy (Verified 09/16/18 15:36) Past Medical History - General Information source: Patient - Social History Smoking Status: Never Smoker Frequency of alcohol use: Social Drug Abuse: None 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 Family History: Reviewed & Not Pertinent Patient has suicidal ideation: No Patient has homicidal ideation: No - Past Medical History Cardiac Medical History: Reports: None Pulmonary Medical History: Reports: Hx Asthma EENT Medical History: Reports: None Neurological Medical History: Reports: None Endocrine Medical History: Reports: None Renal/ Medical History: Reports: Hx Kidney Stones Malignancy Medical History: Reports None GI Medical History: Reports: Other - Recently diagnosed inguinal hernia Musculoskeletal Medical History: Reports None Skin Medical History: Reports None Psychiatric Medical History: Reports: Hx Bipolar Disorder, Hx Depression Traumatic Medical History: Reports: None Infectious Medical History: Reports: None Past Surgical History: Reports: Hx Kidney (Renal Surgery) - x3, Hx Orthopedic Surgery - left knee meniscus, Hx Tonsillectomy - adenoids also removed - Immunizations Hx Diphtheria, Pertussis, Tetanus Vaccination: Yes Review of Systems - Review of Systems Constitutional: Chills, Recent illness EENT: Nose congestion, Nose discharge, Sinus pressure, Sinus discharge Cardiovascular: Chest pain - With cough Respiratory: Cough, Hurts to breathe - Hurts to cough Gastrointestinal: No symptoms reported Genitourinary: No symptoms reported Male Genitourinary: No symptoms reported Musculoskeletal: No symptoms reported Skin: No symptoms reported Hematologic/Lymphatic: No symptoms reported Neurological/Psychological: No symptoms reported Physical Exam - Vital signs Vitals: Temp Pulse Resp BP Pulse Ox 98.7 F 97 16 161/96 H 94 09/16/18 15:39 09/16/18 15:39 09/16/18 15:39 09/16/18 15:39 09/16/18 15:39 Interpretation: Normal - General General appearance: Appears well, Alert - HEENT Head: Normocephalic, Atraumatic Eyes: Normal Pupils: PERRL - Respiratory Respiratory status: No respiratory distress Chest status: Pain with cough, Pain with deep breathing Breath sounds: Nonproductive cough. No: Rales, Rhonchi, Stridor, Wheezing Chest palpation: Normal - Cardiovascular Rhythm: Regular Heart sounds: Normal auscultation Murmur: No - Abdominal Inspection: Normal Distension: No distension Bowel sounds: Normal Tenderness: Nontender Organomegaly: No organomegaly - Back Back: Normal, Nontender - Extremities General upper extremity: Normal inspection, Nontender, Normal color, Normal ROM, Normal temperature General lower extremity: Normal inspection, Nontender, Normal color, Normal ROM, Normal temperature, Normal weight bearing. No: Evelia's sign - Neurological Neuro grossly intact: Yes Cognition: Normal Orientation: AAOx4 Harry Coma Scale Eye Opening: Spontaneous Harry Coma Scale Verbal: Oriented Harry Coma Scale Motor: Obeys Commands Harry Coma Scale Total: 15 Speech: Normal Motor strength normal: LUE, RUE, LLE, RLE Sensory: Normal - Psychological Associated symptoms: Normal affect, Normal mood - Skin Skin Temperature: Warm Skin Moisture: Dry Skin Color: Normal Course - Re-evaluation Re-evalutation: 09/16/18 16:45 After performing a Medical Screening Examination, I estimate there is LOW risk for ACUTE CORONARY SYNDROME, RESPIRATORY FAILURE, SEPSIS OR MENINGITIS, thus I c onsider the discharge disposition reasonable. I have reevaluated this patient multiple times and no significant life threatening changes are noted. The patient and I have discussed the diagnosis and risks, and we agree with discharging home with close follow-up. We also discussed returning to the Emergency Department immediately if new or worsening symptoms occur. We have discussed the symptoms which are most concerning (e.g., changing or worsening pain, trouble swallowing or breathing, neck stiffness, fever) that necessitate immediate return. - Vital Signs Vital signs: Temp Pulse Resp BP Pulse Ox 100.7 F H 92 16 135/80 H 98 09/16/18 16:27 09/16/18 16:27 09/16/18 16:27 09/16/18 16:27 09/16/18 16:27 - Diagnostic Test Radiology reviewed: Image reviewed, Reports reviewed Discharge - Discharge Clinical Impression: URI (upper respiratory infection) Qualifiers: URI type: unspecified viral URI Qualified Code(s): J06.9 - Acute upper respiratory infection, unspecified Condition: Stable Disposition: HOME, SELF-CARE Additional Instructions: UPPER RESPIRATORY ILLNESS: You have a viral infection of the respiratory passages -- a "cold." This common infection causes nasal congestion, drainage, and often sore throat and cough. It is highly contagious. The disease usually lasts about 10 to 14 days. There is no "cure" for the viral infection -- it must run its course. If there is a complication, such as bacterial infection in the nose, sinuses, middle ear, or bronchial tubes, antibiotics may be required. The antibiotics won't affect the virus. Drink plenty of fluids. A humidifier may help. An expectorant medication or decongestant may make you more comfortable. Use acetaminophen or ibuprofen for fever or aches. See the doctor if fever persists over two days, if there is any significant worsening of your symptoms, or if you simply fail to improve as expected. DECONGESTANT MEDICATION: A decongestant medicine has beensuggested. Often this medicine is combined in the same tablet with an antihistamine or expectorant. This type of medicine is helpful in treating a bad cold or sinus condition, as well as in treatment of the nasal congestion of hay fever. It is not of much benefit for lung infections. Decongestant medicines are related to stimulants. They can cause an increase in blood pressure and heart rate. Persons with heart disease and high blood pressure should not take decongestants without discussing this with the physician. If you develop palpitations, chest pain, headache, or tremors, stop the medicine and consult your physician. COUGH-SUPPRESSANT & EXPECTORANT MEDICATION: You are to use a cough medication as needed for relief of symptoms. This medicine is a combination of an expectorant (to make the mucous thinner and more easily "coughed up") and a cough suppressant (to reduce the frequency of coughing). The cough-suppressant medicine is related to narcotics. You may experience mild nausea and sleepiness. Some patients who are very sensitive to narcotics may have stomach pain from this medicine. Taking the medicine with food reduces these side effects. Do not drive or work with machinery until you know how this medicine affects you. The expectorant should have no side effects. Iodine-containing expectorants (such as organidin) should not be taken by persons with active thyroid disease unless approved by your doctor. Call the doctor if you develop shortness of breath, hives, rash, itching, lightheadedness, or severe nausea and vomiting. USE OF ACETAMINOPHEN (Tylenol): Acetaminophen may be taken for pain relief or fever control. It's much safer than aspirin, offering a wider range of "safe" dosages. It is safe during . Some brand names are Tylenol, Panadol, Datril, Anacin 3, Tempra, and Liquiprin. Acetaminophen can be repeated every four hours. The following are maximum recommended dosages: >89 pounds or adults 650 mg to 900 mg Acetaminophen can be repeated every four hours. Maximum dose not to exceed 4000 mg a day. Tessalon Perles You have received a prescription for Tessalon Perles (benzonatate). This is a non-narcotic medicine for relief of cough. It usually works in about 15-20 minutes and lasts around four hours. Tessalon Perles should be swallowed. They should not be chewed or dissolved in the mouth (this can produce temporary numbing of the mouth and choking can occur). If you develop any adverse effects such as wheezing, shortness of breath, hives, rash, itching, or lightheadedness, please return at once. I have treated you with Claritin 10 mg, Sudafed 30 mg, Mucinex 600 mg, and Tessalon Perles in the emergency room for your cough cold congestion causing you to cough and cause chest pain. You can use these medications these are all [id number]. I have written you a prescription for the Tessalon Perles. You could also use cough drops that this is usual for you. Flonase nasal sprays [id number] you can also use that there will sprays in your nose or decreas e the drainage going down the back your throat. Also salt and soda solution gargles will help with your symptoms. Salt and soda solution 1 quart of water 1 tablespoon of salt 1 teaspoon of baking soda Mixed 3 ingredients together and boil for 1 minute Placed in a covered quart jar Use 1/2 ounce of cold solution to gargle 3 times a day Please be sure to follow-up with your primary doctor and your GI concerning the hernia you have recently diagnosed with. FOLLOW-UP CARE: If you have been referred to a physician for follow-up care, call the physicians office for an appointment as you were instructed or within the next two days. If you experience worsening or a significant change in your symptoms, notify the physician immediately or return to the Emergency Department at any t nando for re-evaluation. Prescriptions: Benzonatate [Tessalon Perle 100 mg Capsule] 100 mg PO Q8HP PRN #20 cap PRN Reason: Forms: Elevated Blood Pressure, Return to Work
[2018-09-16] MEDS ORDERED: GUAIFENESIN 600 MG TABLET.SA PO ONE (16:25)
[2018-09-16] MEDS ORDERED: PSEUDOEPHEDRINE HCL 30 MG TABLET PO ONE (16:25)
[2018-09-16] MEDS ORDERED: LORATADINE 10 MG TABLET PO ONE (16:25)
[2018-09-16] MEDS ORDERED: BENZONATATE 100 MG CAPSULE PO ONE (16:25)
[2018-09-16 16:28] VITALS: BP 135/80
== END 2018-09-16 16:39 | disposition home or self-care (01) ==
LOC: ER 15:33
DX: J06.9 Acute upper respiratory infection, unspecified (principal); R09.89 Other specified symptoms and signs involving the circulatory and respiratory systems; M79.10 Myalgia, unspecified site; R05 Cough; R09.81 Nasal congestion; R07.9 Chest pain, unspecified; J45.909 Unspecified asthma, uncomplicated
CPT/HCPCS: 71046; 99283

== ENCOUNTER 2019-02-02 02:01 | Emergency (ER) | payer OTHER, BC ==
--- NOTE | 2019-02-02 02:59 | RADIOLOGY REPORT (SQ) ---
EXAM DESCRIPTION: XR SHOULDER 2 OR MORE VIEWS COMPLETED DATE/TME: 02/02/2019 02:26 CLINICAL HISTORY: 33 years, Male, bone pain COMPARISON: None. NUMBER OF VIEWS: 3 TECHNIQUE: 3 view left shoulder LIMITATIONS: None. FINDINGS: Negative for fracture or dislocation. Soft tissues are unremarkable. Joint spaces are preserved IMPRESSION: Negative exam copyright 2010 [employer]- All Rights Reserved
[2019-02-02 09:08] VITALS: BP 169/87
[2019-02-02] MEDS ORDERED: KETOROLAC TROMETHAMINE 60 MG/2 ML SDV IM ONE (09:09)
--- NOTE | 2019-02-02 09:12 | ER Document Report ---
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 Patient denies any previous injury to his left shoulder or surgeries. Patient states he is right- handed. TRAVEL OUTSIDE OF THE [place] IN LAST 30 DAYS: No - Related Data Allergies/Adverse Reactions: kiwi Allergy (Verified 09/16/18 15:36) Penicillins Allergy (Verified 09/16/18 15:36) Home Medications: abreo Past Medical History - Social History Smoking Status: Never Smoker Family History: Reviewed & Not Pertinent Patient has suicidal ideation: No Patient has homicidal ideation: No Pulmonary Medical History: Reports: Hx Asthma Renal/ Medical History: Reports: Hx Kidney Stones. Denies: Hx Peritoneal Dialysis Psychiatric Medical History: Reports: Hx Bipolar Disorder, Hx Depression Past Surgical History: Reports: Hx Kidney (Renal Surgery) - x3, Hx Orthopedic Surgery - left knee meniscus, Hx Tonsillectomy - adenoids also removed - Immunizations Hx Diphtheria, Pertussis, Tetanus Vaccination: Yes Review of Systems - Review of Systems Notes: Constitutional: Negative for fever. HENT: Negative for sore throat. Eyes: Negative for visual changes. Cardiovascular: Negative for chest pain. Respiratory: Negative for shortness of breath. Gastrointestinal: Negative for abdominal pain, vomiting or diarrhea. Genitourinary: Negative for dysuria. Musculoskeletal: Positive for left shoulder pain. Negative for back pain. Skin: Negative for rash. Neurological: Negative for headaches, weakness or numbness. 10 point ROS negative except as marked above and in HPI. Physical Exam - Vital signs Vitals: Temp Pulse Resp BP Pulse Ox 97.9 F 81 16 153/79 H 96 02/02/19 02:21 02/02/19 02:21 02/02/19 02:21 02/02/19 02:21 02/02/19 02:21 - Notes Notes: GENERAL: Well-appearing, well-nourished and in no acute distress. HEAD: Atraumatic, normocephalic. EYES: Extraocular movements intact, sclera anicteric, conjunctiva are normal. NECK: Normal range of motion, supple without lymphadenopathy or JVD. EXTREMITIES: Normal range of motion, no pitting or edema. No clubbing or cyanosis. Left shoulder: Tenderness to left posterior shoulder. FROM with pain. NEUROLOGICAL: Cranial nerves II through XII grossly intact. Normal speech, normal gait. PSYCH: Normal mood, normal affect. SKIN: Warm, Dry, normal turgor, no rashes or lesions noted. Course - Re-evaluation Re-evalutation: 02/02/19 left shoulder pain. Nontoxic, well-appearing. Tenderness to posterior shoulder. Full range of motion. X-ray shows no fracture. Patient given shot of Toradol and prescription for ibuprofen and muscle relaxers. Patient given follow-up with PCP. Patient instructed to use heat 10 minutes on 10 minutes off. Return precautions given. Patient voices understanding and agrees with plan of care. - Vital Signs Vital signs: Temp Pulse Resp BP Pulse Ox 97.7 F 77 17 138/94 H 98 02/02/19 04:45 02/02/19 04:45 02/02/19 04:45 02/02/19 04:45 02/02/19 04:45 Discharge - Discharge Clinical Impression: Left shoulder strain Qualifiers: Encounter type: initial encounter Qualified Code(s): S46.912A - Strain of unspecified muscle, fascia and tendon at shoulder and upper arm level, left arm, initial encounter Condition: Stable Disposition: HOME, SELF-CARE Additional Instructions: Please take medications as prescribed. Do not drink or drive while taking Flexeril as it may make you drowsy. Your x-ray did not show any fractures. Please use heat 10 minutes on 10 minutes off as discussed. Please follow-up with your primary care doctor or clinic listed if you do not have one in 3 to 5 days. To ER for any worsening symptoms, including worsening shoulder pain, fever, inability to move arm, numbness/tingling, chest pain, shortness of breath, abdominal pain, nausea/vomiting, or any other symptoms that are concerning to you. Prescriptions: Cyclobenzaprine HCl [Flexeril 10 mg Tablet] 10 mg PO TIDP PRN #15 tab PRN Reason: Ibuprofen [Motrin 800 mg Tablet] 800 mg PO Q8H PRN #30 tab PRN Reason: Forms: Return to Work Referrals: GUNNER LING MD [COMMUNITY BASED STAFF] - Follow up as needed [facility] [Provider Group] - Follow up as needed
== END 2019-02-02 09:25 | disposition home or self-care (01) ==
LOC: ER 02:01
DX: S46.912A Strain of unspecified muscle, fascia and tendon at shoulder and upper arm level, left arm, initial encounter (principal); X58.XXXA Exposure to other specified factors, initial encounter; M25.512 Pain in left shoulder; J45.909 Unspecified asthma, uncomplicated; Z91.018 Allergy to other foods; Z88.0 Allergy status to penicillin
CPT/HCPCS: 99283; 96372; 73030; J1885

== ENCOUNTER 2019-03-30 21:27 | Emergency (ER) | payer BC ==
[2019-03-30 21:41] VITALS: BP 160/99
[2019-03-30] MEDS ORDERED: IBUPROFEN 800 MG TABLET PO ONE (21:43)
--- NOTE | 2019-03-30 21:44 | ER Document Report ---
ED Medical Screen (RME) - General Chief Complaint: Fall Injury Stated Complaint: RIGHT JILLIAN PAIN/FALL INURY Time Seen by Provider: 03/30/19 21:40 TRAVEL OUTSIDE OF THE [place] IN LAST 30 DAYS: No - HPI Notes: 03/30/19 21:43 Patient is a 33-year-old male who presents complaining of right ankle pain and swelling primarily to the lateral ankle status post twist injury prior to arrival. I have treated and performed a rapid initial assessment of this patient. A comprehensive ED assessment and evaluation of the patient, analysis of test results and completion of medical decision making process will be conducted by additional ED providers. PHYSICAL EXAMINATION: GENERAL: Well-appearing, well-nourished and in no acute distress. A&Ox4. Answers questions appropriately. Right ankle: There is noted swelling and tenderness to the lateral malleolus. FROM at the ankle. Achilles is intact. N/P intact distal. There is no bony tenderness of the foot. Lisfranc maneuver negative. No tenderness at the base of the fifth metatarsal. - Related Data Allergies/Adverse Reactions: kiwi Allergy (Verified 09/16/18 15:36) Penicillins Allergy (Verified 09/16/18 15:36) Past Medical History Pulmonary Medical History: Reports: Hx Asthma Renal/ Medical History: Reports: Hx Kidney Stones. Denies: Hx Peritoneal Dialysis Psychiatric Medical History: Reports: Hx Bipolar Disorder, Hx Depression Past Surgical History: Reports: Hx Kidney (Renal Surgery) - x3, Hx Orthopedic Surgery - left knee meniscus, Hx Tonsillectomy - adenoids also removed - Immunizations Hx Diphtheria, Pertussis, Tetanus Vaccination: Yes Physical Exam - Vital signs Vitals: Temp Pulse Resp BP Pulse Ox 97.9 F 79 16 160/99 H 100 03/30/19 21:35 03/30/19 21:35 03/30/19 21:35 03/30/19 21:35 03/30/19 21:35 Course - Vital Signs Vital signs: Temp Pulse Resp BP Pulse Ox 97.9 F 79 16 160/99 H 100 03/30/19 21:35 03/30/19 21:35 03/30/19 21:35 03/30/19 21:35 03/30/19 21:35
--- NOTE | 2019-03-30 22:08 | ER Document Report ---
HPI - HPI Patient complains to provider of: Right ankle pain Time Seen by Provider: 03/30/19 21:40 Pain Level: 4 Notes: 33-year-old male to the emergency department with complaints of right ankle pain and swelling that began this evening. 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 He states he was stepping onto the ladder when 1 of the boots fell. He states that that obstructed his stepping and he twisted the ankle and fell down onto the ground. He states that it immediately began to swell. He states it hurts very much to bear weight. He denies any other injuries. - ROS Systems Reviewed and Negative: Yes All other systems reviewed and negative - CONSTITUTIONAL Constitutional: DENIES: Fever, Chills - EENT EENT: DENIES: Sore Throat, Ear Pain, Nasal Drainage-Clear, Nasal Drainage- Purulent, Congestion, Eye problems - NEURO Neurology: DENIES: Headache, Weakness, Vision blurred, Dizzinesss / Vertigo - CARDIOVASCULAR Cardiovascular: DENIES: Chest pain - RESPIRATORY Respiratory: DENIES: Trouble Breathing, Coughing - GASTROINTESTINAL Gastrointestinal: DENIES: Abdominal Pain, Nausea, Patient vomiting - MUSCULOSKELETAL Notes: see hpi - DERM Skin Color: Normal Skin Problems: None Past Medical History - General Information source: Patient - Social History Smoking Status: Never Smoker Frequency of alcohol use: None Drug Abuse: None Family History: Reviewed & Not Pertinent Patient has suicidal ideation: No Patient has homicidal ideation: No Pulmonary Medical History: Reports: Hx Asthma Renal/ Medical History: Reports: Hx Kidney Stones. Denies: Hx Peritoneal Dialysis Psychiatric Medical History: Reports: Hx Bipolar Disorder, Hx Depression Past Surgical History: Reports: Hx Kidney (Renal Surgery) - x3, Hx Orthopedic Surgery - left knee meniscus, Hx Tonsillectomy - adenoids also removed - Immunizations Hx Diphtheria, Pertussis, Tetanus Vaccination: Yes Vertical Provider Document - CONSTITUTIONAL Agree With Documented VS: Yes Exam Limitations: No Limitations General Appearance: WD/WN, No Apparent Distress - INFECTION CONTROL TRAVEL OUTSIDE OF THE [place] IN LAST 30 DAYS: No - HEENT HEENT: Atraumatic, PERRLA - NECK Neck: Normal Inspection, Supple - RESPIRATORY Respiratory: Breath Sounds Normal, No Respiratory Distress. negative: Rales, Rhonchi, Wheezing - CARDIOVASCULAR Cardiovascular: Regular Rate, Regular Rhythm, No Murmur - GI/ABDOMEN Gastrointestinal: Abdomen Soft, Abdomen Non-Tender - BACK Back: Normal Inspection Notes: Nontender to palpation over the midline cervical, thoracic, lumbar spine. There is no step-off or deformity. - MUSCULOSKELETAL/EXTREMETIES Notes: There is tenderness to palpation of the lateral malleolus with noted edema. Patient still has 5 out of 5 strength in dorsi and plantar flexion. There is no tenderness to palpation over the knee and hip. DP pulses are intact and equal. Cap refill is less than 2 seconds. Course - Vital Signs Vital signs: Temp Pulse Resp BP Pulse Ox 97.9 F 79 16 160/99 H 100 03/30/19 21:35 03/30/19 21:35 03/30/19 21:35 03/30/19 21:35 03/30/19 21:35 - Diagnostic Test Radiology reviewed: Image reviewed, Reports reviewed Procedures - Immobilization Right Ankle Pre-Proc Neuro Vasc Exam: Normal Immobilizer type: Posterior ankle Performed by: PCT Post-Proc Neuro Vasc Exam: Normal Alignment checked and good: Yes Discharge - Discharge Clinical Impression: Ankle sprain Qualifiers: Encounter type: initial encounter Involved ligament of ankle: unspecified ligament Laterality: right Qualified Code(s): S93.401A - Sprain of unspecified ligament of right ankle, initial encounter Fall Qualifiers: Encounter type: initial encounter Qualified Code(s): W19.XXXA - Unspecified fall, initial encounter Condition: Stable Disposition: HOME, SELF-CARE Instructions: Ice Packs ([facility]), Sprained Ankle ([facility]) Additional Instructions: Use splint. Rest, ice, elevate the ankle. Apply ice 3 times a day for 20 minutes. X-ray did not show an acute fracture. Follow-up with orthopedist. Prescriptions: Ibuprofen [Motrin 800 mg Tablet] 800 mg PO Q8H PRN #30 tab PRN Reason: Forms: Special Work Note Referrals: KATHY MCINTYRE JR, DO [ACTIVE PROVISIONAL STAFF] - Follow up in 3-5 days (for orthopedic follow up)
--- NOTE | 2019-03-30 22:25 | RADIOLOGY REPORT (SQ) ---
EXAM DESCRIPTION: XR ANKLE 3 OR MORE VIEWS COMPLETED DATE/TME: 03/30/2019 21:43 CLINICAL HISTORY: 33 years, Male, Rt lateral ankle swelling s/p twist injury COMPARISON: None. NUMBER OF VIEWS: 3 TECHNIQUE: 3 view right ankle LIMITATIONS: None. FINDINGS: Lateral soft tissue swelling. Negative for acute fracture or dislocation. Ankle mortise is intact IMPRESSION: Lateral soft tissue swelling with no acute fracture copyright 2010 [employer]- All Rights Reserved
== END 2019-03-30 23:16 | disposition home or self-care (01) ==
LOC: ER 21:27
DX: S93.401A Sprain of unspecified ligament of right ankle, initial encounter (principal); W19.XXXA Unspecified fall, initial encounter; Y93.89 Activity, other specified; Y99.0 Civilian activity done for income or pay; J45.909 Unspecified asthma, uncomplicated
CPT/HCPCS: 99283

== ENCOUNTER 2019-06-23 05:28 | Emergency (ER) | payer BC, OTHER ==
[2019-06-23 06:39] LABS: ABSOLUTE EOSINOPHILS # (AUTO) 0.7 10^3/uL (0.0-0.6); ABSOLUTE MONOCYTES (AUTO) 0.5 10^3/uL (0.1-1.4); BASOPHILS % (AUTO) 0.9 % (0-2); HEMATOCRIT 42.1 % (37.9-51.0); HEMOGLOBIN 14.1 g/dL (13.5-17.0); LYMPHOCYTES % (AUTO) 38.6 % (13-45); MEAN CORPUSCULAR HEMOGLOBIN 26.9 pg (27.0-33.4); MEAN CORPUSCULAR HGB CONC 33.6 g/dL (32.0-36.0); MEAN CORPUSCULAR VOLUME 80 fl (80-97); MONOCYTES % (AUTO) 9.5 % (3-13); PLATELET COUNT 126 10^3/uL (150-450); RED BLOOD COUNT 5.26 10^6/uL (4.35-5.55); RED CELL DISTRIBUTION WIDTH 15.7 % (11.5-14.0); TOTAL CELLS COUNTED % (AUTO) 100 %; WHITE BLOOD COUNT 5.3 10^3/uL (4.0-10.5)
[2019-06-23 06:47] LABS: ALBUMIN 4.2 g/dL (3.5-5.0); ALKALINE PHOSPHATASE 56 U/L (38-126); ANION GAP 6 (5-19); ASPARTATE AMINO TRANSFERASE 35 U/L (17-59); BILIRUBIN,TOTAL 0.6 mg/dL (0.2-1.3); BLOOD UREA NITROGEN 17 mg/dL (7-20); CALCIUM 9.1 mg/dL (8.4-10.2); CARBON DIOXIDE 28 mmol/L (22-30); CHLORIDE 103 mmol/L (98-107); GLUCOSE 110 mg/dL (75-110); POTASSIUM 3.6 mmol/L (3.6-5.0); TOTAL PROTEIN 7.3 g/dL (6.3-8.2)
[2019-06-23] MEDS ORDERED: FAMOTIDINE INJ/PF 20 MG/2 ML SDV IV ONE (06:48)
[2019-06-23] MEDS ORDERED: NORMAL SALINE 1000 ML 1,000 ML IV ONE (06:48)
[2019-06-23] MEDS ORDERED: LIDOCAINE 2% VISCOUS SOLN 15 ML UDCUP PO ONE (06:48)
[2019-06-23] MEDS ORDERED: MAG HYDROX/AL HYDROX/SIMETH SUSP 30 ML UDCUP PO ONE (06:48)
--- NOTE | 2019-06-23 07:07 | ER Document Report ---
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 The pain does not radiate anywhere. He did have his girlfriend bring food from the grill and he also ate some pizza last night. He does not have a history of reflux or heartburn. He does have a history of kidney stones, but states this pain he has now he has never experienced in the past. He does notice that taking a deep breath causes a pressure discomfort in the lower substernal region. TRAVEL OUTSIDE OF THE [place] IN LAST 30 DAYS: No - Related Data Allergies/Adverse Reactions: Penicillins Allergy (Verified 06/23/19 09:25) fresh fruit Allergy (Severe, Uncoded 06/23/19 09:25) Anaphylaxis Past Medical History - General Information source: Patient, [facility] Records - Social History Smoking Status: Current Some Day Smoker Cigarette use (# per day): Yes Chew tobacco use (# tins/day): No Smoking Education Provided: No Frequency of alcohol use: Rare Drug Abuse: None Occupation: [employer] [facility] [place] [employer] Lives with: Friend Family History: Reviewed & Not Pertinent Patient has homicidal ideation: No Pulmonary Medical History: Reports: Hx Asthma Renal/ Medical History: Reports: Hx Kidney Stones Psychiatric Medical History: Reports: Hx Bipolar Disorder, Hx Depression Past Surgical History: Reports: Hx Adenoidectomy, Hx Kidney (Renal Surgery) - x3--cystoscopic laser lithotripsy, Hx Orthopedic Surgery - left knee meniscus surgery x2, Hx Tonsillectomy - Immunizations Hx Diphtheria, Pertussis, Tetanus Vaccination: Yes Review of Systems - Review of Systems Constitutional: denies: Fever EENT: No symptoms reported Cardiovascular: No symptoms reported Respiratory: See HPI, Cough Gastrointestinal: See HPI, Abdominal pain. denies: Nausea, Vomiting Genitourinary: No symptoms reported Male Genitourinary: No symptoms reported Musculoskeletal: No symptoms reported Skin: No symptoms reported Hematologic/Lymphatic: No symptoms reported Neurological/Psychological: No symptoms reported -: Yes All other systems reviewed and negative Physical Exam - Vital signs Vitals: Temp Pulse Resp BP Pulse Ox 97.8 F 82 16 141/90 H 98 06/23/19 05:32 06/23/19 05:32 06/23/19 05:32 06/23/19 05:32 06/23/19 05:32 - General General appearance: Appears well, Alert, Anxious In distress: Mild - HEENT Head: Normocephalic, Atraumatic Eyes: Normal Pupils: PERRL - Respiratory Respiratory status: No respiratory distress Breath sounds: Normal - Cardiovascular Rhythm: Regular Heart sounds: Normal auscultation Murmur: No - Abdominal Inspection: Normal Distension: No distension Bowel sounds: Normal Tenderness: Tender - There is some tenderness in the upper epigastric region. There is some tenderness in the right upper quadrant, but that seems to be coming more from the epigastric region. - Back Back: Normal - Extremities General upper extremity: Normal inspection General lower extremity: Normal inspection - Neurological Neuro grossly intact: Yes - Psychological Associated symptoms: Normal affect, Normal mood, Anxious - Skin Skin Temperature: Warm Skin Moisture: Dry Skin Color: Normal Course - Re-evaluation Re-evalutation: 06/23/19 07:16 Patient's lipase is 6952.2 He rarely drinks alcohol. He gets complete physical with lipid profile annually and is due to have it repeated soon. He does not have a history of gallbladder disease. We will check a triglyceride level and do a gallbladder ultrasound. 06/23/19 12:54 The patient was given a GI cocktail which is provided some improvement in his discomfort. He reports that just prior to drinking the cocktail he did burp up some acid bitter tasting fluid. The serum lipase was 57. The gallbladder ultrasound was unremarkable, a CT scan of the abdomen pelvis with oral and IV contrast showed small amount of nonspecific right upper quadra nt free fluid. No explanation for the pancreatitis. There is no clear explanation for the patient's pancreatitis. He did have some component of reflux esophagitis by history. We will treat with proton pump inhibitors, low-fat/pancreatitis type diet. Antacids between meals. Follow-up with a primary care provider this week to recheck his lipase levels. He has not had any nauseousness, vomiting, or diarrhea associated with this episode of pancreatitis. - Vital Signs Vital signs: Temp Pulse Resp BP Pulse Ox 97.5 F 64 15 149/93 H 99 06/23/19 11:28 06/23/19 11:28 06/23/19 11:28 06/23/19 11:28 06/23/19 11:28 - Laboratory Result Diagrams: 06/23/19 06:00 06/23/19 06:00 Laboratory results interpreted by me: 06/23/19 06/23/19 06:00 06:00 MCH 26.9 L RDW 15.7 H Plt Count 126 L Eos % (Auto) 14.0 H Absolute Eos (auto) 0.7 H Seg Neutrophils % 37.0 L Lipase 6592.2 H - Diagnostic Test Radiology reviewed: Image reviewed, Reports reviewed - Right upper quadrant ultrasound shows fatty liver, pancreas not well seen, no gallstones. Normal gallbladder wall thickness, no pericholecystic fluid. Oral and IV contrast CT scan of the abdomen pelvis shows a small amount of nonspecific right upper quadrant free fluid. No other abnormalities except for a left lower quadrant inguinal hernia containing fat and a portion of the left lateral urinary bladder. Discharge - Discharge Clinical Impression: Pancreatitis, acute Qualifiers: Pancreatitis type: idiopathic Acute pancreatitis complication: no infection or necrosis Qualified Code(s): K85.00 - Idiopathic acute pancreatitis without necrosis or infection GERD (gastroesophageal reflux disease) Qualifiers: Esophagitis presence: without esophagitis Qualified Code(s): K21.9 - Gastro- esophageal reflux disease without esophagitis High blood pressure Qualifiers: Hypertension type: unspecified Qualified Code(s): I10 - Essential (primary) hypertension Condition: Stable Disposition: HOME, SELF-CARE Additional Instructions: Pancreatitis: Pancreatitis is an inflammation of the pancreas, an organ at the back of your abdomen. The pancreas produces insulin and enzymes that digest your food. Pancreatitis can be caused by gallstones in the bile duct, by alcohol or viruses, or by excess fat or calcium in the blood stream. Occasionally, pancreatitis occurs when a stomach ulcer lopez through into the pancreas. We try to find the cause of pancreatitis, but some tests can't be done until the pancreas heals. The usual symptoms of pancreatitis are pain in the pit of the stomach that goes straight through to the back, vomiting, and low-grade fever. Severe cases require hospital admission, but many patients with mild pancreatitis do well at home. You may need medicine for pain and for vomiting. Sometimes we prescribe medicine to decrease stomach acid secretion and to decrease flow of pancreatic juices. Start with a diet of clear liquids (soda pop, juices). When the pain is decreasing, you can add some simple starches (potato, toast, applesauce). Avoid proteins and fats until you are completely painfree. When you're better, your doctor may suggest treatment to prevent future pancreatitis (such as gallbladder removal). Avoid alcohol forever. Get immediate treatment for any future episodes. Contact your doctor at once or return here if you have increasing pain, shortness of breath, general swelling, increasing size of the abdomen, continued vomiting, muscle spasms, or other new symptoms. High Blood Pressure: When your blood pressure was taken today it was elevated. Today's reading was_162/99___. Pre-hypertension/Hypertension: The patient has been informed that they may have pre-hypertension or Hypertension based on a blood pressure reading in the emergency department. I recommend that the patient call the primary care provider listed on their discharge instructions or a physician of their choice this week to arrange follow up for further evaluation of possible pre- hypertension or Hypertension. Sometimes, stress or illness causes a temporary elevation of your blood pressure. We suggest that you get your blood pressure measured three more times during the next few days to see if this is more than a temporary abnormality. If your blood pressure is greater than 150/90 on each occasion, you must have treatment. Some simple things you can do to help are: If you have blood pressure medicine but aren't using it regularly, start taking it again. Get some aerobic exercise for at least 20 minutes on a daily basis. (See your doctor before beginning a new exercise program.) Eat a low-fat diet. Lose excess weight. Avoid salty foods and avoid adding salt to any of the foods you eat. Avoid diet pills, decongestants, "energizing" herbs, and other medicines that elevate blood pressure. If left untreated, hypertension greatly enhances your risk for developing heart disease and strokes. Please don't ignore this problem. Take Prilosec OTC once daily for the next 2 weeks. Take antacids between meals and at bedtime. Follow the highlighted instructions above about diet. When you have improved, you should continue to make low-fat meals part of your regular diet. Take Tylenol for pain if needed. Follow-up with your primary care provider this week for recheck, to repeat your lipase level, and to check your blood pressure. RETURN TO THE EMERGENCY ROOM IF ANY NEW OR WORSENING SYMPTOMS. I personally performed the services described in the documentation, reviewed and edited the documentation which was dictated to the scribe in my presence, and it accurately records my words and actions.
[2019-06-23] MEDS ORDERED: ONDANSETRON HCL INJ/PF 4 MG/2 ML SDV IV ONE (07:15)
[2019-06-23] MEDS ORDERED: MORPHINE SULFATE 10 MG/ML INJ IV ONE (07:15)
[2019-06-23 08:25] LABS: APPEARANCE,URINE CLEAR; BILIRUBIN,URINE NEGATIVE (NEGATIVE); COLOR,URINE YELLOW; GLUCOSE, URINE NEGATIVE (NEGATIVE); KETONES,URINE NEGATIVE (NEGATIVE); LEUKOCYTE ESTERASE,URINE NEGATIVE (NEGATIVE); NITRITE,URINE NEGATIVE (NEGATIVE); PROTEIN,URINE NEGATIVE (NEGATIVE); URINE SPECIFIC GRAVITY 1.021; UROBILINOGEN,URINE NEGATIVE mg/dL (<2.0)
--- NOTE | 2019-06-23 08:34 | RADIOLOGY REPORT (SQ) ---
EXAM DESCRIPTION: U/S ABDOMEN LIMITED W/O DOP IMAGES COMPLETED DATE/TIME: 06/23/2019 8:12 am REASON FOR STUDY: Acute pancreatitis COMPARISON: None. TECHNIQUE: Dynamic and static grayscale images acquired of the abdomen and recorded on PACS. Additio nal selected color Doppler and spectral images recorded. LIMITATIONS: Large patient, midline bowel gas FINDINGS: PANCREAS: Not well seen LIVER: Normal size, increased echogenicity from fatty infiltration. No gross masses. LIVER VASCULATURE: Normal directional flow of the main portal vein and hepatic veins. GALLBLADDER: No stones. Normal wall thickness. No pericholecystic fluid. ULTRASOUND-DETECTED DRISCOLL'S SIGN: Negative. INTRAHEPATIC DUCTS AND COMMON DUCT: Common bile duct at the matthew hepatis 5 mm. Distal most common d uct not well seen INFERIOR VENA CAVA: Normal flow. AORTA: Not well seen RIGHT KIDNEY: Normal size. Normal echogenicity. No solid or suspicious masses. No hydronephrosis. No calcifications. PERITONEAL AND RIGHT PLEURAL SPACE: No ascites or effusions. OTHER: No other significant findings. IMPRESSION: No gallstones Fatty liver Pancreas not well seen TECHNICAL DOCUMENTATION: JOB ID: [id number] [employer]- All Rights Reserved Reading location - IP/workstation name: [id number]
[2019-06-23] MEDS ORDERED: RINGERS SOLUTION,LACTATED 1,000 ML IV ONE (09:10)
--- NOTE | 2019-06-23 12:02 | RADIOLOGY REPORT (SQ) ---
EXAM DESCRIPTION: CT ABD/PELVIS WITH IV ORAL IMAGES COMPLETED DATE/TIME: 06/23/2019 11:11 am REASON FOR STUDY: Acute pancreatitis COMPARISON: Abdominal ultrasound 06/23/2019 TECHNIQUE: CT scan of the abdomen and pelvis performed using helical scanning technique with dynamic intravenous contrast injection. Patient drank oral contrast. Images reviewed with lung, soft tissue , and bone windows. Reconstructed coronal and sagittal MPR images reviewed. Delayed images for evalua tion of the urinary system also acquired. All images stored on PACS. All CT scanners at this facility use dose modulation, iterative reconstruction, and/or weight based d osing when appropriate to reduce radiation dose to as low as reasonably achievable (ALARA). [facility]: Dose Right [facility]: CareDose [facility]: Dose Right [facility]: Teradose 4D [facility]: Mobilitrix CONTRAST TYPE AND DOSE: contrast/concentration: Isovue 350.00 mg/ml; Total Contrast Delivered: 79.0 ml; Total Saline Delivered: 65.0 ml RENAL FUNCTION: None required. The patient is less than 50 years old. RADIATION DOSE: CT Rad equipment meets quality standard of care and radiation dose reduction techniq ues were employed. CTDIvol: 18.4 - 21.0 mGy. DLP: 2228 mGy-cm.. LIMITATIONS: None. FINDINGS: Small amount of free right upper quadrant fluid is present under the right hemidiaphragm, along the right hepatorenal fossa, and tracking down the inferior aspect right lobe liver into the ri ght pericolic gutter. No free intraperitoneal air or fluid. No biliary ductal dilatation or calcified gallstones. No peripancreatic inflammatory change. These findings were discussed with Dr. Emery in the emergency room. LOWER CHEST: No significant findings. No nodules or infiltrates. LIVER: Normal size. No masses. No dilated ducts. SPLEEN: Normal size. No focal lesions. PANCREAS: No masses. No significant calcifications. No adjacent inflammation or peripancreatic fluid collections. Pancreatic duct not dilated. GALLBLADDER: No identified stones by CT criteria. Minimal right upper quadrant free fluid as above ADRENAL GLANDS: No significant masses or asymmetry. RIGHT KIDNEY AND URETER: No solid masses. No significant calcifications. No hydronephrosis or hyd roureter. LEFT KIDNEY AND URETER: No solid masses. No significant calcifications. No hydronephrosis or hydr oureter. AORTA AND VESSELS: No aneurysm. No dissection. Renal arteries, SMA, celiac without stenosis. RETROPERITONEUM: No retroperitoneal adenopathy, hemorrhage or masses. BOWEL AND PERITONEAL CAVITY: Patient drank oral contrast. No masses or inflammatory changes. No maria c e fluid or peritoneal masses. APPENDIX: Normal. PELVIS: No mass. No free fluid. Normal bladder. ABDOMINAL WALL: There is a left lower quadrant inguinal hernia containing fat and a portion of the le ftward lateral urinary bladder, best shown on axial images 79-5. BONES: No significant or acute findings. OTHER: No other significant finding. IMPRESSION: Small amount of nonspecific right upper quadrant free fluid. Findings discussed with Dr Ismael Emery in the emergency room TECHNICAL DOCUMENTATION: JOB ID: [id number] Quality ID # [id number]: Final reports with documentation of one or more dose reduction techniques (e.g., Au tomated exposure control, adjustment of the mA and/or kV according to patient size, use of iterative reconstruction technique) 2010 [employer]- All Rights Reserved Reading location - IP/workstation name: [id number]
[2019-06-23 12:56] VITALS: BP 162/99
== END 2019-06-23 13:07 | disposition home or self-care (01) ==
LOC: ER 05:28
DX: K85.00 Idiopathic acute pancreatitis without necrosis or infection (principal); K21.9 Gastro-esophageal reflux disease without esophagitis; I10 Essential (primary) hypertension; R05 Cough; R10.9 Unspecified abdominal pain; R10.13 Epigastric pain; Z87.442 Personal history of urinary calculi; Z88.0 Allergy status to penicillin; F17.210 Nicotine dependence, cigarettes, uncomplicated; J45.909 Unspecified asthma, uncomplicated
CPT/HCPCS: 99284; 96361; 96374; 96375; 36415; 83690; 84478; 85025; 80053; 81001; 76705; 74177; J3490; J2270; J2405; J7030; J7120; S0028